=== PATIENT | male | born 1945 | race Caucasian/White ===

== ENCOUNTER 2017-04-23 04:12 | Emergency (ER) | payer OTHER ==
[~2017-04-23] VITALS: Ht 177.8 cm; Wt 90.7 kg
[~2017-04-23 04:12] MED LIST: ABSORBINE JR.0.75 GM TOP; ACTICIN 5% CREA60 G1; ARICEPT10 MG; ASPIRIN EC81 M1; CIPROFLOXACIN500 M1 PO; DILANTIN 100 M100 MG PO; HYDROXYZINE HCL25 M1 PO; NAMENDA10 MG/5 ML; PHENYTOIN SODI300 MG PO; REMERON15 MG PO; SEROQUEL 25 MG25 M2 PO; SEROQUEL 50 MG50 MG PO; VITAMIN D-32000 UNIT
[2017-04-23] MEDS ORDERED: LIPITOR10 MG PO (04:31)
[2017-04-23] MEDS ORDERED: HALOPERIDOL5 MG/1 M1 IM (04:32)
[2017-04-23] MEDS ORDERED: LORAZEPAM 22 MG/1 ML IM (04:33)
[2017-04-23] MEDS ORDERED: OLANZAPINE10 M1 PO (04:34)
[2017-04-23 06:20] VITALS: BP 158/82
== END 2017-04-23 07:22 ==
LOC: ER 04:12
DX: S01.01XA Laceration without foreign body of scalp, initial encounter (principal); F32.9 Major depressive disorder, single episode, unspecified; W01.198A Fall on same level from slipping, tripping and stumbling with subsequent striking against other object, initial encounter; Y93.89 Activity, other specified; Y92.89 Other specified places as the place of occurrence of the external cause; Y99.8 Other external cause status

== ENCOUNTER 2017-11-13 10:56 | Emergency (ER) | payer OTHER ==
[~2017-11-13] VITALS: Ht 180.3 cm; Wt 81.7 kg
--- NOTE | ~2017-11-13 | EKG ---
[address] [address] ELECTROCARDIOGRAM REPORT Name: СВЕТЛАНА HANSON Room #: DEP STEVEN Thao#: [id number] Admission: 11/13/17 Attend Phys: Discharge: 11/13/17 Date of : 49 Report #: [id number] THIS REPORT FOR: //name// [facility] ED Test Date: 2017-11-13 Test Time: 11:00:38 Pat Name: СВЕТЛАНА HANSON Department: Room: Gender: Safety And Health Consultant: MALIK : 1945 Requested By: Jeffrey Javier Order Number: [id number] MD: Joshua Dickerson Measurements Intervals [place] Rate: 36 P: 0 IN: QRS: 58 QRSD: 224 T: QT: 544 QTc: 421 Interpretive Statements Complete AV block with junctional escape rhythm. Electronically Signed On 11-13-2017 17:04:08 CDT by Joshua Dickerson [email or web address] <ELECTRONICALLY SIGNED> By: Joshua Dickerson MD 11/13/17 1704 1100 Ashely Dickerson MD /MONE
[~2017-11-13 10:56] MED LIST changes: +HALOPERIDOL5 MG/1 M1 IM; +LIPITOR10 MG PO; +LORAZEPAM 22 MG/1 ML IM; +OLANZAPINE10 M1 PO
[2017-11-13] MEDS ORDERED: PHENYTOIN125 MG/52 PO (11:28)
[2017-11-13] MEDS ORDERED: TYLENOL325 MG PO (11:29)
[2017-11-13 11:31] LABS: ABSOLUTE NEUTROPHILS 5.2 thou/uL (1.4-8.2); BASOPHILS 0.4 % (0.0-2.0); HEMATOCRIT 44.1 % (42.0-52.0); HEMOGLOBIN 14.7 gm/dL (14.0-18.0); MCH 29.8 pg (26.0-34.0); MCHC 33.4 g/dL (28.0-37.0); MCV 89.3 fL (80.0-100.0); MONOCYTES 10.7 % (1.0-8.0); PLATELET COUNT 137 thou/uL (150-400); POLYS 57.9 % (36.0-66.0); RBC 4.94 mil/uL (4.50-6.00); RDW 15.5 % (10.5-14.5)
[2017-11-13] MEDS ORDERED: HALOPERIDOL 5 MG5 MG PO (11:32)
[2017-11-13] MEDS ORDERED: ATIVAN1 MG PO (11:32)
[2017-11-13 11:47] LABS: ANION GAP 3 mmol/L (7-16); BUN 28 mg/dL (7-18); CALCIUM 8.6 mg/dL (8.5-10.1); CHLORIDE 108 mmol/L (98-107); CO2 32 mmol/L (21-32); CREATININE 1.4 mg/dL (0.7-1.3); GLUCOSE 101 mg/dL (74-106); POTASSIUM 3.8 mmol/L (3.5-5.1); SODIUM 143 mmol/L (136-145)
[2017-11-13 11:54] LABS: ALBUMIN 3.7 g/dL (3.4-5.0); SGOT 18 U/L (15-37); SGPT 18 U/L (30-65); TOTAL BILIRUBIN 0.2 mg/dL (<0.1-1.0); TOTAL PROTEIN 7.3 g/dL (6.4-8.2); TROPONIN-I < 0.04 ng/mL (<0.06)
[2017-11-13 12:03] LABS: URINE BILIRUBIN NEGATIVE (Negative); URINE BLOOD NEGATIVE (Negative); URINE CLARITY CLEAR; URINE COLOR YELLOW; URINE GLUCOSE-RANDOM* NEGATIVE (Negative); URINE KETONES NEGATIVE (Negative); URINE LEUKOCYTES-REFLEX NEGATIVE (Negative); URINE NITRITE-REFLEX NEGATIVE (Negative); URINE PROTEIN (DIPSTICK) NEGATIVE (Negative); URINE SPECIFIC GRAVITY 1.025 (1.005-1.035); URINE UROBILINOGEN 0.2 E.U./dl (0.2-1.0)
[2017-11-13 13:30] VITALS: BP 144/70
== END 2017-11-13 14:30 ==
LOC: ER 10:56
PROVIDERS: Emergency Medicine
DX: I44.2 Atrioventricular block, complete (principal); Z66 Do not resuscitate; F32.9 Major depressive disorder, single episode, unspecified

== ENCOUNTER 2019-03-06 18:31 | Emergency (ER) | payer OTHER ==
[~2019-03-06] VITALS: Ht 182.9 cm; Wt 86.2 kg
[~2019-03-06 18:31] MED LIST changes: +ATIVAN1 MG PO; +HALOPERIDOL 5 MG5 MG PO; +PHENYTOIN125 MG/52 PO; +TYLENOL325 MG PO
[2019-03-06 20:02] LABS: ABSOLUTE NEUTROPHILS 6.5 thou/uL (1.4-8.2); BASOPHILS 0.5 % (0.0-2.0); HEMATOCRIT 40.7 % (42.0-52.0); HEMOGLOBIN 13.8 gm/dL (14.0-18.0); MCH 29.8 pg (26.0-34.0); MCHC 33.9 g/dL (28.0-37.0); MCV 87.9 fL (80.0-100.0); MONOCYTES 9.1 % (1.0-8.0); PLATELET COUNT 140 thou/uL (150-400); POLYS 68.4 % (36.0-66.0); RBC 4.63 mil/uL (4.50-6.00); RDW 15.4 % (10.5-14.5); WBC 9.5 thou/uL (4.0-11.0)
[2019-03-06 20:17] LABS: ANION GAP 8 mmol/L (7-16); BUN 24 mg/dL (7-18); CALCIUM 8.7 mg/dL (8.5-10.1); CHLORIDE 105 mmol/L (98-107); CO2 28 mmol/L (21-32); CREATININE 1.2 mg/dL (0.7-1.3); GLUCOSE 107 mg/dL (74-106); POTASSIUM 4.3 mmol/L (3.5-5.1); SODIUM 141 mmol/L (136-145)
[2019-03-06 20:21] LABS: ALBUMIN 3.6 g/dL (3.4-5.0); MAGNESIUM 2.1 mg/dL (1.8-2.4); SGOT 21 U/L (15-37); SGPT 13 U/L (30-65); TOTAL BILIRUBIN 0.2 mg/dL (<0.1-1.0); TROPONIN-I <0.06 ng/mL (<0.06)
[2019-03-06 21:53] VITALS: BP 174/106
--- NOTE | 2019-03-10 07:54 | EKG ---
[place] [address] [facility] [facility] [place] [address] ELECTROCARDIOGRAM REPORT Name: СВЕТЛАНА HANSON [facility] [place] [id number] Admission: 03/06/19 Attend Phys: Discharge: 03/06/19 Date of : 49 Report #: [id number] THIS REPORT FOR: //name// [facility] ED Test Date: 2019-03-06 Test Time: 19:17:37 Pat Name: СВЕТЛАНА HANSON Department: Room: Gender: M It Support Consultant: ariel loya : 1945 Requested By: Preston Quintero Order Number: [id number] MD: Timothy Angulo Measurements Intervals [place] Rate: 44 P: 210 MT: QRS: 67 QRSD: 105 T: 20 QT: 522 QTc: 447 Interpretive Statements AV block, complete (third degree) Nonspecific ST segment abnormality Compared to ECG 11/13/2017 11:00:38 No significant change was found Electronically Signed On 03-10-2019 7:54:00 CDT by Timothy Angulo [email or web address] <ELECTRONICALLY SIGNED> By: Timothy Angulo MD, [facility] 03/10/19 0754 16 16 Timothy Angulo MD, [facility] /EPI
== END 2019-03-06 23:48 ==
LOC: ER 18:31
PROVIDERS: Emergency Medicine
DX: S01.81XA Laceration without foreign body of other part of head, initial encounter (principal); T82.118A Breakdown (mechanical) of other cardiac electronic device, initial encounter; F03.90 Unspecified dementia, unspecified severity, without behavioral disturbance, psychotic disturbance, mood disturbance, and anxiety; I44.2 Atrioventricular block, complete; F32.9 Major depressive disorder, single episode, unspecified; E78.5 Hyperlipidemia, unspecified; K21.9 Gastro-esophageal reflux disease without esophagitis; Z86.73 Personal history of transient ischemic attack (TIA), and cerebral infarction without residual deficits; W05.0XXA Fall from non-moving wheelchair, initial encounter; Y93.89 Activity, other specified; Y92.128 Other place in nursing home as the place of occurrence of the external cause; Y99.8 Other external cause status

== ENCOUNTER 2020-02-17 19:08 | Inpatient (IN) | payer OTHER ==
[~2020-02-17] VITALS: Ht 182.9 cm; Wt 70.8 kg
--- NOTE | ~2020-02-17 | EMS ---
[facility] [address] [place] [address] EMS Patient Care Report Name: СВЕТЛАНА HANSON [facility] [id number] Admission: 02/17/20 Attend Phys: Discharge: Date of : 49 Report #: [id number] THIS REPORT FOR: //name// Report Transmitted: 02/17/2020 19:19 EMS Care Summary [place], [place]/[facility] Incident [id number] @ 02/17/2020 18:24 Incident Location [address] Patient СВЕТЛАНА HANSON Male, 74 Years 1945 Patient Address Patient History Other,Gastro-Esophageal Reflux Disease (GERD),Depression, Patient Medications Atorvastatin, Aspirin, Dilantin, Quetiapine, Phenytoin, Chief Complaint AMS Disposition Transported No Lights/[place] Dispatch Reason Breathing Problem Transported To [facility] Narrative DISPATCHED FOR A SICK PERSON. UPON ARRIVAL ON SCENE, DIRECTED TO THE "COVID UNIT" BY STAFF. STAFF INFORMED ME THAT THE PT WAS HYPOXIC AND THEY HAD PLACED HIM ON A NRB MASK BECAISE OF IT. THEY ALSO STATED THAT THE PT WAS ALTERED COMPARED TO NORMAL. THEY EXPLAINED THAT THE PT IS NON-VERBAL AT BASELINE, BUT THAT HE OPENES HIS EYES AND POINTS WITH HIS HANDS TO COMMUNICATE WITH PEOPLE. PT WAS FOUND SUPINE IN A BED, WEARING A NRB MASK SET AT 15LPM. PT WAS RESPONSIVE TO PAINFUL STIMULI. PT TEMPERATURE OBTAINED AND READ 99.4. PT WAS MOVED FROM BED TO RNEY, SECURED AND MOVED TO AMBULANCE WITHOUT ISSUE. [facility] [address] [place] [address] EMS Patient Care Report Name: СВЕТЛАНА HANSON Room #: REG M.R.#: [id number] Admission: 02/17/20 Attend Phys: Discharge: Date of : 49 Report #: [id number] PT MONITORED THROUGHOUT TX AND IT WAS NOTED THAT HE WAS COUGHING FREQUENTLY. PT STATUS REMAINED UNCHANGED. Initial Vitals @18:58P: 48,R: 36,SpO2: 95, @18:48P: 46,R: 40,BP: 85/49,CO: 1,SpO2: 92, @18:53P: 47,R: 31,SpO2: 90, @19:00P: 46,R: 43,SpO2: 95, @18:38P: 37,SpO2: 93, @18:52P: 47,R: 40,SpO2: 92, @18:57P: 45,R: 32,SpO2: 87, @18:49R: 30,SpO2: 94, @18:49P: 46,R: 17,CO: 0,SpO2: 93, @18:43CO: 0,SpO2: 95, @18:56P: 45,R: 39,SpO2: 94, @18:54R: 31,BP: 95/53,SpO2: 93, @18:42P: 47,SpO2: 96, @18:46P: 46,R: 45,WI Suspected: false @18:58P: 46,R: 25,BP: 95/55,GCS: 8,SpO2: 96,Revised Trauma: 10, @18:40P: 47,R: 10,BP: 82/54,Pain: 4/10,GCS: 8,Glucose: 193,SpO2: 97,Revised Trauma: 9, @18:51P: 46,R: 40,SpO2: 92, @18:54P: 46,R: 48,SpO2: 95, @19:02P: 45,R: 37,SpO2: 94, @18:44P: 47,SpO2: 94, @18:52R: 44,BP: 83/46,SpO2: 93, @18:36P: 40,R: 10,Pain: 4/10,GCS: 8,Temp: 99.4F, Assessments @18:36MENTAL:SKIN:HEENT:Head/Face: No Abnormalities,Neck/Airway: No Abnormalities,LUNG SOUNDS:General: No Abnormalities,ABDOMEN:General: No Abnormalities,PELVIS//GI:No Abnormalities,EXTREMITIES:Right Arm: Weakness,Right Leg: Weakness,Capillary Refill: Left Upper: < 2 Sec,Left Arm: No Abnormalities,Left Leg: No Abnormalities,PULSE:Radial: 2+ Normal,NEURO:Weakness Right-Sided,@18:50MENTAL:SKIN:HEENT:Head/Face: No Abnormalities,Neck/Airway: No Abnormalities,LUNG SOUNDS:General: No Abnormalities,Left Upper: No Abnormalities,Right Upper: No Abnormalities,Left Lower: No Abnormalities,Right Lower: No Abnormalities,ABDOMEN:General: No Abnormalities,Left Upper: No Abnormalities,Right Upper: No Abnormalities,Left Lower: No Abnormalities,Right Lower: No Abnormalities,PELVIS//GI:Pelvis GUOther,EXTREMITIES:Right Arm: Weakness,Capillary Refill: Left Upper: < 2 Sec,Right Leg: Weakness,Left Arm: No Abnormalities,Left Leg: No Abnormalities,PULSE:Radial: 2+ Normal,NEURO:Weakness Right-Sided, Impression [facility] [address] [place] [address] EMS Patient Care Report Name: СВЕТЛАНА HANSON Room #: REG STEVEN Das.#: [id number] Admission: 02/17/20 Attend Phys: Discharge: Date of : 49 Report #: [id number] Altered Mental Status Procedures @18:36ALS AssessmentResponse: UnchangedSucceeded@18:39StretcherResponse: Unchanged@18:453-Lead ECGResponse: UnchangedSucceeded@18:36Oxygen FlowRate: 15 Device: Non Re-breather Mask (NRB) Response: UnchangedSucceeded Timeline 18:23,Call Received 18:23,Dispatch Notified 18:24,Dispatched 18:25,En Route 18:29,On Scene 18:36,At Patient 18:36,ALS Assessment,Response: UnchangedSucceeded, 18:36,BP: / M,PULSE: 40,RR: 10 R,SPO2: Ox,ETCO2: ,BG: ,PAIN: 4,GCS: 8, 18:36,Oxygen FlowRate: 15 Device: Non Re-breather Mask (NRB) Response: UnchangedSucceeded, 18:38,BP: / M,PULSE: 37,RR: R,SPO2: 93 Ox,ETCO2: ,BG: ,PAIN: ,GCS: , 18:39,Stretcher,Response: Unchanged 18:40,BP: 82/54 M,PULSE: 47,RR: 10 R,SPO2: 97 Ox,ETCO2: ,B,PAIN: 4,GCS: 8, 18:42,BP: / M,PULSE: 47,RR: R,SPO2: 96 Ox,ETCO2: ,BG: ,PAIN: ,GCS: , 18:43,BP: / M,PULSE: ,RR: R,SPO2: 95 Ox,ETCO2: ,BG: ,PAIN: ,GCS: , 18:44,BP: / M,PULSE: 47,RR: R,SPO2: 94 Ox,ETCO2: ,BG: ,PAIN: ,GCS: , 18:45,3-Lead ECG,Response: UnchangedSucceeded, 18:46,BP: / M,PULSE: 46,RR: 45 R,SPO2: Ox,ETCO2: ,BG: ,PAIN: ,GCS: , 18:48,BP: 85/49 M,PULSE: 46,RR: 40 R,SPO2: 92 Ox,ETCO2: ,BG: ,PAIN: ,GCS: , 18:49,BP: / M,PULSE: 46,RR: 17 R,SPO2: 93 Ox,ETCO2: ,BG: ,PAIN: ,GCS: , 18:49,BP: / M,PULSE: ,RR: 30 R,SPO2: 94 Ox,ETCO2: ,BG: ,PAIN: ,GCS: , 18:50,Depart Scene 18:51,BP: / M,PULSE: 46,RR: 40 R,SPO2: 92 Ox,ETCO2: ,BG: ,PAIN: ,GCS: , 18:52,BP: / M,PULSE: 47,RR: 40 R,SPO2: 92 Ox,ETCO2: ,BG: ,PAIN: ,GCS: , 18:52,BP: 83/46 M,PULSE: ,RR: 44 R,SPO2: 93 Ox,ETCO2: ,BG: ,PAIN: ,GCS: , 18:53,BP: / M,PULSE: 47,RR: 31 R,SPO2: 90 Ox,ETCO2: ,BG: ,PAIN: ,GCS: , 18:54,BP: 95/53 M,PULSE: ,RR: 31 R,SPO2: 93 Ox,ETCO2: ,BG: ,PAIN: ,GCS: , 18:54,BP: / M,PULSE: 46,RR: 48 R,SPO2: 95 Ox,ETCO2: ,BG: ,PAIN: ,GCS: , 18:56,BP: / M,PULSE: 45,RR: 39 R,SPO2: 94 Ox,ETCO2: ,BG: ,PAIN: ,GCS: , 18:57,BP: / M,PULSE: 45,RR: 32 R,SPO2: 87 Ox,ETCO2: ,BG: ,PAIN: ,GCS: , 18:58,At Destination 18:58,BP: 95/55 M,PULSE: 46,RR: 25 R,SPO2: 96 Ox,ETCO2: ,BG: ,PAIN: ,GCS: 8, 18:58,BP: / M,PULSE: 48,RR: 36 R,SPO2: 95 Ox,ETCO2: ,BG: ,PAIN: ,GCS: , 19:00,BP: / M,PULSE: 46,RR: 43 R,SPO2: 95 Ox,ETCO2: ,BG: ,PAIN: ,GCS: , 19:02,BP: / M,PULSE: 45,RR: 37 R,SPO2: 94 Ox,ETCO2: ,BG: ,PAIN: ,GCS: , 19:17,Call Closed [facility] [address] [place] [address] EMS Patient Care Report Name: СВЕТЛАНА HANSON Room #: REG [facility].#: [id number] Admission: 02/17/20 Attend Phys: Discharge: Date of : 49 Report #: [id number] Disclaimer v1.1 Copyright 2020 [employer] This EMS Care Summary contains data elements from the applicable legal record (which may be displayed differently). It is designed to provide pertinent information for the following purposes: continuity of care, clinical quality, and state data reporting. The complete legal record is available to ED staff and administrators of the receiving hospital in ES's Patient Tracker. All data is provided "as is."
[2020-02-17 19:09] VITALS: BP 106/48
[2020-02-17 19:54] LABS: BE(vivo) -1.8 mmol/L (-2 to +3); PCO2 34.8 mmHg (35.0-45.0); PO2 73.2 mmHg (80.0-100.0); pH 7.419 (7.360-7.450); sO2 95.1 % (92.0-98.0)
[2020-02-17 20:47] LABS: BASOPHILS 0.2 % (0.0-2.0); HEMATOCRIT 45.5 % (42.0-52.0); HEMOGLOBIN 14.6 gm/dL (14.0-18.0); MCH 28.7 pg (26.0-34.0); MCV 89.6 fL (80.0-100.0); MONOCYTES 6.1 % (1.0-8.0); POLYS 82.7 % (36.0-66.0); RBC 5.08 mil/uL (4.50-6.00); RDW 15.1 % (10.5-14.5); WBC 7.2 thou/uL (4.0-11.0)
[2020-02-17 21:04] LABS: ALBUMIN 2.8 g/dL (3.4-5.0); CREATININE 3.3 mg/dL (0.7-1.3); DIRECT BILIRUBIN 0.2 mg/dL (<0.1-0.2); MAGNESIUM 3.3 mg/dL (1.8-2.4); POTASSIUM 4.2 mmol/L (3.5-5.1); TOTAL BILIRUBIN 0.5 mg/dL (0.2-1.0); TOTAL PROTEIN 7.8 g/dL (6.4-8.2); TROPONIN-I 0.18 ng/mL (<0.06)
[2020-02-17 21:37] LABS: PLATELET COUNT 115 thou/uL (150-400)
[2020-02-18] VITALS (7 sets, daily range): BP systolic 109–159; BP diastolic 46–80
--- NOTE | 2020-02-18 00:24 | NUR ---
Yudith Zeyad notified who is and legal guardian. states, her is a Do not resuscitate and [facility] should have a copy. updated re: condition of her and fact that he is in a 3rd degree block. states, he has a pacemaker and that the battery quit in pacemaker 3 years ago but the and kids do not want it replaced due to his quality of life.
--- NOTE | 2020-02-18 02:14 | NUR ---
PT PRESENTED FROM ED TO 3W. PT ADMIT FROM [facility]. PTS ROOMATE ADMITTED TODAY WITH COVID. PT IS POSITIVE FOR COVID. RR 40, ON NONREBREATHER, HR 58 COMPLETE HEART BLOCK. PT IS A DNR. PT IS NOT RESPONSIVE, WITHDRAWLS TO PAIN. WOUND ON COCCYX. PT ON CONTINUOUS PULSE OX. BED ALARM ON. PT INCONTINENT OF B&B.
--- NOTE | 2020-02-18 02:38 | NUR ---
PROVIDER NOTIFIED OF BEING ON NON REBREATHER, SHE WANTS RT TO PLACE ON PT ON BIPAP. CONSULT PULM.
--- NOTE | 2020-02-18 03:04 | NUR ---
RT NOTIFIED PROVIDER WANTS PT ON BIPAP, RESPIRATORY STATED THAT IS NOT POSSIBLE + COVID, PT NOT RESPONSIVE, , AND NOT IN NEGATIVE AIRWAY ROOM AND COULD BE INTUBED IN ICU. CHARGE NURSE AND MACHINE PLATE STACKER UPDATED. MACHINE PLATE STACKER CONTACTED PROVIDER THAT NEG PRESSURE ROOMS ARE NOT AVAILABLE AND FOR PROVIDER TO TALK WITH RESPIRATORY.
--- NOTE | 2020-02-18 06:22 | NUR ---
ATTEMPT MADE TO CALL GUARDIAN FOR CONSENT FOR CONVALESCENT PLASMA, THE LINE WAS NOT ACCEPTING CALLS. WILL HAVE DAY SHIFT ATTEMPT AGAIN.
[2020-02-18 06:50] LABS: CALCIUM 7.7 mg/dL (8.5-10.1); CREATININE 3.6 mg/dL (0.7-1.3); POTASSIUM 4.3 mmol/L (3.5-5.1); TROPONIN-I 0.22 ng/mL (<0.06)
[2020-02-18 08:57] LABS: CALCIUM 7.7 mg/dL (8.5-10.1); CREATININE 3.5 mg/dL (0.7-1.3); POTASSIUM 3.9 mmol/L (3.5-5.1)
--- NOTE | 2020-02-18 09:07 | EKG ---
[facility] [place] [address] ELECTROCARDIOGRAM REPORT Name: СВЕТЛАНА HANSON Room #: 363-P ADM IN M.R.#: [id number] Admission: 02/18/20 Attend Phys: Onur Alvarado MD Discharge: Date of : 49 Report #: [id number] THIS REPORT FOR: cc: Nirav Parks MD, Dennis R MD Lundgren,Timothy Cooney MD [facility] ~ THIS REPORT FOR: //name// [facility] ED Test Date: 2020-02-17 Test Time: 19:53:02 Pat Name: СВЕТЛАНА HANSON Department: Room: [facility] Gender: M Casino Manager: EUFEMIA : 1945 Requested By: Debra Bustillo Order Number: [id number] MD: Timothy Angulo Measurements Intervals [place] Rate: 43 P: 42 [place]: QRS: 71 QRSD: 105 T: 18 QT: 566 QTc: 479 Interpretive Statements AV block, complete (third degree) Borderline prolonged QT interval Compared to ECG 03/06/2019 19:17:37 No significant change was found Electronically Signed On 02-18-2020 9:07:38 CDT by Timothy Angulo [email or web address] <ELECTRONICALLY SIGNED> By: Timothy Angulo MD, [facility] 02/18/20906 52 52 Timothy Angulo MD, [facility] /EPI
[2020-02-18 09:42] LABS: URINE BILIRUBIN NEGATIVE (Negative); URINE BLOOD 2+ (Negative); URINE CLARITY CLOUDY; URINE COLOR YELLOW; URINE GLUCOSE-RANDOM* NEGATIVE (Negative); URINE KETONES NEGATIVE (Negative); URINE LEUKOCYTES TRACE (Negative); URINE NITRITE NEGATIVE (Negative); URINE PROTEIN (DIPSTICK) 2+ (Negative); URINE SPECIFIC GRAVITY 1.025 (1.005-1.035)
[2020-02-18 10:00] LABS: URINE WBC 6-15 Few /HPF (0-5)
[2020-02-18 10:01] LABS: AMORPHOUS URATES Moderate /LPF (None Seen); BACTERIA >30 Many /HPF (None Seen); SQUAMOUS None Seen /LPF (0-3)
[2020-02-18 10:02] LABS: FINE GRANULAR CASTS 0-3 Few /LPF (None Seen)
[2020-02-18 10:04] LABS: URINE RBC None Seen /HPF (0-2)
--- NOTE | 2020-02-18 10:52 | NUR ---
WOUND CONSULT; ASSESSED WITH PICTURES RE; COVID RESTRICTIONS. THE WOUND IS TO THE COCCYX AREA AND IS OPEN WITH BRUISING SUSPICIOUS OF DEEP TISSUE INJURY BEYOND THE CURRENT WOUND MARGINS. RECOMMENDATIONS 1-ZGUARD/SACRAL FOAM M/W/F PRN 2-LOW AIR LOSS BED PUMP 3-TURN THIS PATIENT AT A MINIMUM EVERY 2 HOURS DISCUSSED WITH RN
--- NOTE | 2020-02-18 13:45 | NUR ---
INITIAL ASSESSMENT: Received consult. NU reviewed chart and spoke with nursing and attending physician. Pt was admitted from [facility] due to hypoxia/AMS/COVID-19. Pt is in Enhanced Isolation due to COVID-19. Pt is febrile and currently on 15L of O2. Pt is on IV abx. NU spoke with pt's , Yudith, via phone. Introduced role of NU. Pt has been a resident at [facility] since 2008. Pt had a CVA in 2005 and is wheelchair bound at the facility. NU provided update and confirmed discharge plan is to return to [facility] when medically stable. NU spoke with GARRETT Herrera at [facility], to provide update. Clinical info to be faxed to [facility] for review. NU is following to assist as needed with discharge planning.
[2020-02-18 17:12] LABS: BE(vivo) -4.8 mmol/L (-2 to +3); HCO3 16.6 mmol/L (22.0-26.0); PCO2 23.1 mmHg (35.0-45.0); PO2 56.1 mmHg (80.0-100.0); pH 7.474 (7.360-7.450); sO2 91.7 % (92.0-98.0)
--- NOTE | 2020-02-18 18:34 | NUR ---
PATIENT NOW SLEEPING AND HAS BEEN THROUGH THE DAY. KEEPS TAKING OFF FACE MASK THEN BIPAP. NOT EASILY REDIRECTED. RESTRAINTS STARTED. LORAZEPAM ADMINISTERED RESPIRATIONS WAS 40 ON BIPAP. WILL CONT WITH PLAN OF CARE.
--- NOTE | 2020-02-18 20:21 | NUR ---
PT ON BIPAP, L WRIST SOFT RESTRAINT. IVF INTACT. REYES TO DD. O2 SAT 80 TO 85 PROBE CHANGED NOW 93, RR REMAINS ELEVATED AND BREATHING LABORED. LUNGS DIMINISHED. CHARGE NURSE AND RR AND PROVIDER UPDATED.
[2020-02-19 00:48] VITALS: BP 105/42; BP 135/49
--- NOTE | 2020-02-19 01:50 | NUR ---
PT RECEIVED CONVALESCENT PLASMA.
[2020-02-19 03:03] VITALS: BP 135/49
[2020-02-19 08:32] LABS: ABSOLUTE NEUTROPHILS 16.7 thou/uL (1.4-8.2); BASOPHILS 0.9 % (0.0-2.0); HEMATOCRIT 39.7 % (42.0-52.0); HEMOGLOBIN 12.7 gm/dL (14.0-18.0); LYMPHOCYTES 5.5 % (24.0-44.0); MCH 28.6 pg (26.0-34.0); MCV 89.6 fL (80.0-100.0); MONOCYTES 1.6 % (1.0-8.0); PLATELET COUNT 113 thou/uL (150-400); RBC 4.43 mil/uL (4.50-6.00); RDW 15.7 % (10.5-14.5); WBC 18.1 thou/uL (4.0-11.0)
[2020-02-19 08:49] VITALS: BP 106/59
[2020-02-19 08:50] LABS: ALBUMIN 2.3 g/dL (3.4-5.0); CALCIUM 7.7 mg/dL (8.5-10.1); CREATININE 4.4 mg/dL (0.7-1.3); MAGNESIUM 2.9 mg/dL (1.8-2.4); POTASSIUM 4.4 mmol/L (3.5-5.1); TOTAL BILIRUBIN 0.9 mg/dL (0.2-1.0); TOTAL PROTEIN 6.9 g/dL (6.4-8.2)
[2020-02-19 11:45] VITALS: BP 97/46
--- NOTE | 2020-02-19 12:07 | NUR ---
NU reviewed chart and spoke with nursing and attending physician. Pt is in Enhanced Isolation due to COVID-19. Pt had fever yesterday and is requiring bipap support. Attending physician spoke with pt's yesterday regarding plan of care. Pt is a DNR. Attending physician to speak with pt's again today regarding possible comfort care. NU spoke with GARRETT Herrera at [facility] to provide update. NU is following to assist as needed with discharge planning.
[2020-02-19 15:05] VITALS: BP 110/44
--- NOTE | 2020-02-19 18:09 | NUR ---
PATIENT CONT ON BIPAP AND NO SIGNIFICANT IMPROVEMENT IN STATUS NOTED AT THIS TIME. HIS RESP. REMAINS ABOVE 40 THROUGH THE DAY. HE IS NIETHER EATING OR DRINKING. TURNED Q2HRS. WILL CONT WITH PLAN OF CARE.
[2020-02-19 19:02] VITALS: BP 110/66
--- NOTE | 2020-02-20 00:14 | NUR ---
BIPAP DCed PER FINANCIAL SERVICES ASSISTANT REQEST. PT IS COMFORT CARE AND DESATING FAST.
--- NOTE | 2020-02-20 02:46 | NUR ---
IGOR CARE OF PT AT 1900HRS. PT IS UNRESPONSIVE AND IS A COMFORT CARE ONLY PT. PT'S STATUS WAS CHANGED TO MS. RESTREAINTS DCed. BiPAP DCed. PT IS ON 10L O2 VIA A NON REBREATHER MASK ON. PT IS DESATING. ASSESSMENT CHARTED. PRN MORPNINE AND ATIVAN PROVIDED FOR AIR HUNGER AND AGITATION. FAN ON PER ORDER. WILL CONTINUE TO MONITOR.
[2020-02-20 04:12] VITALS: BP 105/45
[2020-02-20 06:40] LABS: CALCIUM 8.2 mg/dL (8.5-10.1); CREATININE 3.8 mg/dL (0.7-1.3); POTASSIUM 4.2 mmol/L (3.5-5.1)
[2020-02-20 08:00] VITALS: BP 110/55
--- NOTE | 2020-02-20 16:24 | NUR ---
PATIENT CONT ON OXYGEN VIA MASK. HE IS NOT EATING OR DRINKING. FOOD AND WATER HAS BEEN OFFERED THROUGH THE DAY BUT HE WILL NOT EVEN OPEN HIS MOUTH. UPDATED TODAY ABOUT HIS STATUS. NO NEED TO OFFER MS THIS SHIFT HE HAS HAD STEADY RESP OF ABOUT 20. WILL CONT WITH PLAN OF CARE.
[2020-02-20 20:39] VITALS: BP 144/75
--- NOTE | 2020-02-21 03:14 | NUR ---
ASSUMED PT CARE AROUND 1930. DOES NOT OPEN EYES SPONTANEOUSLY. NOT ABLE TO AROUSE FOR MEANINGFUL ACTICITY. NO S/S ACUTE DISTRESS NOTED OR REPORTED AT THIS TIME. WILL CON TO MONITOR FOR ANY CHANGES IN CONDITION.
[2020-02-21 09:06] VITALS: BP 143/81
--- NOTE | 2020-02-21 18:38 | NUR ---
PATIENT NOW SLEEPING AND RESPIRATIONS ARE NON LABORED. HE WAS NOTED EALIER HAVING SOA AND BEING RESTLESS AND PRN MS ADMINISTERED. EACH ADMININSTRATION WAS EFFECTIVE IN CONTROLLING AIR HUNGER. WILL CONT WITH PLAN OF CARE.
[2020-02-21 20:07] VITALS: BP 121/50
--- NOTE | 2020-02-22 04:50 | NUR ---
ASSUMED CARE AT 1900, ASSESSMENT COMPLETED. PT RESPONDS TO STAFF MOVING HIM, WILL PULL ARMS BACK AND GROAN. HR IS 3RD DEG BLOCK IN THE 30'S. UNABLE TO OBTAIN O2 SAT D/T INCREASINGLY CYANOTIC FINGERTIPS, NOSE IS ALSO GRADUALLY MORE BLUE/PURPLE. PT HAS 2L NC BUT IS MOUTH BREATHING AND USING EXCESSORY MUSCLES. IV WENT BAD, OBTAINED ORDER TO CHANGE MORPHINE AND ATIVAN TO SUBLINGUAL ROUTE. SPOKE WITH FAMILY MEMBER HENRY REGARDING PT'S STATUS. NO OTHER CONCERNS, WILL CONTINUE TO MONITOR.
[2020-02-22 08:12] VITALS: BP 119/79
--- NOTE | 2020-02-22 09:34 | NUR ---
Followup: note comfort care measures. Defer further nutrition reassessment unless consulted
--- NOTE | 2020-02-22 11:01 | NUR ---
WOUND CARE F/U DUE TO COVID ISOLATION/RESTRICTIONS LIMITED ASSESSMENT OF WOUND, VIEWED PHOTOS AND DISCUSSED WOUND STATUS W/ REALTY SPECIALIST CAR, ASKED TO REPORT TO WOUND RN IF WOUND WORSENING, OTHERWISE CONT CURRENT POC, ZGUARD AND SACRAL FOAM DRSG GIVEN TO REALTY SPECIALIST RECOMMENDATIONS; CONT CURRENT POC, ENCOURAGED PRESSURE RELIEF AND OFF LOADING REALTY SPECIALIST AWARE
--- NOTE | 2020-02-22 14:47 | NUR ---
SW reviewed chart and spoke with nursing and attending physician. Pt remains in Enhanced Isolation due to COVID-19. Pt is a DNR and on comfort care measures. SW discussed with attending physician, that hospice house is not an option due to pt being COVID positive. SW left voice message for GARRETT Herrera at [facility], to provide update. NU is following to assist as needed with discharge planning.
[2020-02-22 19:40] VITALS: BP 128/48
--- NOTE | 2020-02-23 01:12 | NUR ---
NON RESPONSIVE. TACHYPNEIC-USE OF ACCESORY MUSCLES. CYNANOSIS TO FINGERS, FACE JESU NOSE AND TOES.COMFORT CARE. DNR.COMPLETE HEART BLOCK ON MONITOR. FOR COMFORT. REYES WITH NO U/O.
[2020-02-23 08:07] VITALS: BP 116/37
--- NOTE | 2020-02-23 11:03 | NUR ---
ASSUMED PATIENT CARE THIS SHIFT. ASSESSMENTS AND MEDS CHARTED. PATIENT CONTINUES TO BE NON-RESPONSIVE, TACHYPNEIC. BP STABLE, UNABLE TO OBTAIN O2 SAT FROM EXTREMITIES BECAUSE EXTREMITIES ARE CYANOTIC. ON 2LNC FOR COMFORT. MORPHINE GIVEN IV FOR AIR HUNGER PRN. UPDATED PATIENT THIS AM ON CONDITION.
--- NOTE | 2020-02-23 13:36 | NUR ---
PATIENT ASSESSMENT COMPLETED BY THIS NURSE AND RASHEL WHALEY AT BEDSIDE. TIME OF PRONOUNCED AT [address] CURRIE TO MAKE AWARE OF PATIENTS PASSING. CALLED FORK ASSEMBLER. CALLED PATIENT TO MAKE AWARE OF PATIENTS PASSING, HOME INFORMATION GIVEN TO NURSE, STATES [facility]. ALL INVASIVE LINES, REYES AND IV REMOVED FROM PATIENT. PERSONAL BELONGINGS (PANTS, SHIRT, SOCKS) GIVEN TO SECURITY IN BAG. SECURITY CALLED HOME AND TO RETRIEVE PATIENT BODY THIS AFTERNOON.
--- NOTE | 2020-02-23 16:05 | NUR ---
SW reviewed chart and spoke with nursing and attending physician. Pt on comfort care measures. Pt earlier today. Nursing notified pt's . SW spoke with Javier at [facility] to provide update. No additional SW needs identified at this time, but is available to assist should needs arise
== END 2020-02-23 13:11 | DRG 871 ==
LOC: ER 19:08 → 3W 02-18 00:36 → EROBS 02-18 00:36 → 3W 02-18 01:06
PROVIDERS: Emergency Medicine; Nurse Practitioner Family; ADMIT Internal Medicine; ATTEND Internal Medicine
DX: A41.89 Other specified sepsis (principal); U07.1 COVID-19; J96.01 Acute respiratory failure with hypoxia; G92 Toxic encephalopathy; J12.89 Other viral pneumonia; N17.9 Acute kidney failure, unspecified; E87.0 Hyperosmolality and hypernatremia; I69.351 Hemiplegia and hemiparesis following cerebral infarction affecting right dominant side; I44.2 Atrioventricular block, complete; M62.82 Rhabdomyolysis; N30.90 Cystitis, unspecified without hematuria; R65.20 Severe sepsis without septic shock; F32.9 Major depressive disorder, single episode, unspecified; F03.90 Unspecified dementia, unspecified severity, without behavioral disturbance, psychotic disturbance, mood disturbance, and anxiety; Z66 Do not resuscitate; K21.9 Gastro-esophageal reflux disease without esophagitis; E78.5 Hyperlipidemia, unspecified; E86.0 Dehydration; G40.909 Epilepsy, unspecified, not intractable, without status epilepticus; R13.10 Dysphagia, unspecified; N40.1 Benign prostatic hyperplasia with lower urinary tract symptoms; I25.10 Atherosclerotic heart disease of native coronary artery without angina pectoris; I95.9 Hypotension, unspecified; Z51.5 Encounter for palliative care; R41.0 Disorientation, unspecified; Z95.0 Presence of cardiac pacemaker; Z79.899 Other long term (current) drug therapy
CPT/HCPCS: 10779; 10879